=== PATIENT | male | born 1995 | race Caucasian/White ===

== ENCOUNTER 2020-05-03 23:12 | Emergency (ER) | payer BC, OTHER ==
[2020-05-03 23:19] VITALS: BP 148/56
[2020-05-04] MEDS ORDERED: LIDOCAINE 1% INJ (10 MG/ML) 10 ML MDV INJ ONE (00:38)
[2020-05-04] MEDS ORDERED: CEFTRIAXONE INJ 250 MG VIAL IM ONE (00:38)
[2020-05-04] MEDS ORDERED: AZITHROMYCIN 250 MG TABLET PO ONE (00:38)
--- NOTE | 2020-05-04 00:41 | ER Document Report ---
ED GI/ - General Chief Complaint: STD Exposure Stated Complaint: STD SCREEN BURNING WHEN URINATE Time Seen by Provider: 05/04/20 00:34 Notes: CHIEF COMPLAINT: Burning with urination testicular pain HPI: 25-year-old male presenting to the emergency department complaining of burning with urination and a clear discharge from the urethral tip. Patient also complains of mild intermittent sharp stabbing discomfort to the left testicle. Denies nausea vomiting. States he has been sexually active with someone who had told him she had been treated previously for chlamydia. States he is now not sure that she actually was treated. Does report some discomfort with urination ROS: See HPI - all other systems were reviewed and are otherwise negative Constitutional: no fever GI: no vomiting, no diarrhea, no abdominal pain : + dysuria Integumentary: no rash Allergy: no hives MEDICATIONS: I agree with the patient medications as charted by the RN. ALLERGIES: I agree with the allergies as charted by the RN. PAST MEDICAL HISTORY/PAST SURGICAL HISTORY: Reviewed and agree as charted by RN. SOCIAL HISTORY: Reviewed and agree as charted by RN. FAMILY HISTORY: No significant familial comorbid conditions directly related to patient complaint EXAM: Reviewed vital signs as charted by RN. CONSTITUTIONAL: Alert and oriented and responds appropriately to questions. Well-appearing; well-nourished HEAD: Normocephalic; atraumatic EYES: PERRL; Conjunctivae clear, sclerae non-icteric ENT: normal nose; no rhinorrhea; moist mucous membranes; pharynx without lesions noted, no uvula edema or deviation, no tonsillar hypertrophy, phonation normal NECK: Supple without meningismus; non-tender; no cervical lymphadenopathy, no masses CARD: symmetric distal pulses RESP: Normal chest excursion without splinting or tachypnea ABD/GI: Normal bowel sounds; non-distended; soft, non-tender, no rebound, no guarding; no palpable organomegaly or masses. : Circumcised male. Bilateral testicles are descended and nontender. No palpable masses. No visible or palpable inguinal or scrotal hernias. No visible urethral discharge. No visible lesions BACK: The back appears normal and is non-tender to palpation, there is no CVA tenderness EXT: Normal ROM in all joints; non-tender to palpation; no cyanosis, no effusions, no edema SKIN: Normal color for age and race; warm; dry; good turgor; no acute lesions noted NEURO: Moves all extremities equally; Motor and sensory function intact PSYCH: The patient's mood and manner are appropriate. Grooming and personal hygiene are appropriate. MDM: 25-year-old male with concern for STD possibly chlamydia. Will send testing, discussed need for abstinence, need for notification of sexual partners if he test positive. Will empirically treat with Zithromax for 7 TRAVEL OUTSIDE OF THE [place] IN LAST 30 DAYS: No - Related Data Allergies/Adverse Reactions: No Known Allergies Allergy (Verified 08/01/15 20:52) Home Medications: supplements Past Medical History - Social History Smoking Status: Never Smoker Family History: None Pulmonary Medical History: Reports: Hx Asthma - Immunizations Immunizations up to date: Yes Hx Diphtheria, Pertussis, Tetanus Vaccination: Yes Physical Exam - Vital signs Vitals: Temp Pulse Resp BP Pulse Ox 98.4 F 49 L 16 148/56 H 100 05/03/20 23:19 05/03/20 23:19 05/03/20 23:19 05/03/20 23:19 05/03/20 23:19 Course - Re-evaluation Re-evalutation: 05/04/20 00:40 I have low suspicion for torsion in this patient at this time - Vital Signs Vital signs: Temp Pulse Resp BP Pulse Ox 98.4 F 49 L 16 148/56 H 100 05/03/20 23:19 05/03/20 23:19 05/03/20 23:19 05/03/20 23:19 05/03/20 23:19 Discharge - Discharge Clinical Impression: Concern about STD in male without diagnosis Condition: Stable Disposition: HOME, SELF-CARE Additional Instructions: 1. you were treated tonight for presumptive STD. No sexual intercourse for one week. 2. your cultures for Gonorrhea and Chlamydia are pending and will take 4-5 days to come back. if they are positive, you will be notified by the hospital by certified letter. 3. follow up with [facility] for further evaluation and treatment 4. if your cultures are positive, notify any sexual partners of need to get treated
[2020-05-04 00:57] LABS: APPEARANCE,URINE CLEAR; BILIRUBIN,URINE NEGATIVE (NEGATIVE); COLOR,URINE STRAW; GLUCOSE, URINE NEGATIVE (NEGATIVE); KETONES,URINE NEGATIVE (NEGATIVE); LEUKOCYTE ESTERASE,URINE NEGATIVE (NEGATIVE); NITRITE,URINE NEGATIVE (NEGATIVE); PROTEIN,URINE NEGATIVE (NEGATIVE); URINE SPECIFIC GRAVITY 1.017; UROBILINOGEN,URINE NEGATIVE mg/dL (<2.0)
[2020-05-04 02:23] LABS: CHLAM PCR NOT DETECTED (NOT DETECT)
== END 2020-05-04 01:20 | disposition home or self-care (01) ==
LOC: ER 23:12
DX: Z20.2 Contact with and (suspected) exposure to infections with a predominantly sexual mode of transmission (principal); R30.0 Dysuria; R36.9 Urethral discharge, unspecified; J45.909 Unspecified asthma, uncomplicated; Z79.899 Other long term (current) drug therapy
CPT/HCPCS: 99284; 96372; 87086; 81001; 87491; 87591; J0696

== ENCOUNTER 2020-05-11 16:15 | Emergency (ER) | payer OTHER ==
--- NOTE | 2020-05-11 16:40 | ER Document Report ---
ED Medical Screen (RME) - General Chief Complaint: Headache Stated Complaint: HEADACHE Time Seen by Provider: 05/11/20 16:38 Information source: Patient Notes: Patient presents complaining of sore throat headache and fatigue for the past 2 days. Patient states 2 days ago he had a temperature of 100.7. Patient reports chronic cough. Patient is concerned about possible Covid I have greeted and performed a rapid initial assessment of this patient. A comprehensive ED assessment and evaluation of the patient, analysis of test results and completion of the medical decision making process will be conducted by additional ED providers. TRAVEL OUTSIDE OF THE [place] IN LAST 30 DAYS: No - Related Data Allergies/Adverse Reactions: No Known Allergies Allergy (Verified 08/01/15 20:52) Past Medical History Pulmonary Medical History: Reports: Hx Asthma - Immunizations Immunizations up to date: Yes Hx Diphtheria, Pertussis, Tetanus Vaccination: Yes Physical Exam - Vital signs Vitals: Temp Pulse Resp BP Pulse Ox 97.8 F 63 20 138/58 H 99 05/11/20 16:25 05/11/20 16:25 05/11/20 16:25 05/11/20 16:25 05/11/20 16:25 - HEENT Pharynx: Erythema. No: Exudate, Tonsillar hypertrophy, Potential airway comprom. Course - Vital Signs Vital signs: Temp Pulse Resp BP Pulse Ox 97.8 F 63 20 138/58 H 99 05/11/20 16:25 05/11/20 16:25 05/11/20 16:25 05/11/20 16:25 05/11/20 16:25
--- NOTE | 2020-05-11 16:59 | RADIOLOGY REPORT (SQ) ---
EXAM DESCRIPTION: CHEST SINGLE VIEW IMAGES COMPLETED DATE/TIME: 05/11/2020 4:51 pm REASON FOR STUDY: cough COMPARISON: None. EXAM PARAMETERS: NUMBER OF VIEWS: One view. TECHNIQUE: An AP view of the chest was obtained. RADIATION DOSE: NA LIMITATIONS: None. FINDINGS: LUNGS AND PLEURA: No consolidation, pleural effusion or pneumothorax. MEDIASTINUM AND HILAR STRUCTURES: No mediastinal or hilar contour abnormality. HEART AND VASCULAR STRUCTURES: The cardiac silhouette and pulmonary vasculature are within normal agustin its. BONES: No acute findings. HARDWARE: None in the chest. OTHER: No other finding. IMPRESSION: No acute cardiopulmonary process. TECHNICAL DOCUMENTATION: JOB ID: [id number] 2010 [employer]- All Rights Reserved Reading location - IP/workstation name: [email or web address]
[2020-05-11 18:50] LABS: A TYPE INFLUENZA AG NEGATIVE (NEGATIVE); B INFLUENZA AG NEGATIVE (NEGATIVE)
--- NOTE | 2020-05-11 19:23 | ER Document Report ---
Entered by RANDY KLINE SCRIBE 05/11/20 3750 Acting as scribe for:CRYS MARTINEZ DO ED General - General Chief Complaint: Headache Stated Complaint: HEADACHE Time Seen by Provider: 05/11/20 16:38 Information source: Patient Notes: This 25 year old male patient with history of asthma, presents to the emergency department today with complaints of feeling sick the past x3-4 days. Patient sta cindy the other day he visited [facility] and was given a steroid pack. Patient states he is worried about possible covid exposure. TRAVEL OUTSIDE OF THE [place] IN LAST 30 DAYS: No - Related Data Allergies/Adverse Reactions: No Known Allergies Allergy (Verified 08/01/15 20:52) Past Medical History - General Information source: Patient - Social History Smoking Status: Never Smoker Cigarette use (# per day): No Frequency of alcohol use: None Drug Abuse: None Family History: None Patient has homicidal ideation: No Pulmonary Medical History: Reports: Hx Asthma - Immunizations Immunizations up to date: Yes Hx Diphtheria, Pertussis, Tetanus Vaccination: Yes Review of Systems - Review of Systems Constitutional: See HPI, Recent illness EENT: No symptoms reported Cardiovascular: No symptoms reported Respiratory: No symptoms reported Gastrointestinal: No symptoms reported Genitourinary: No symptoms reported Male Genitourinary: No symptoms reported Musculoskeletal: No symptoms reported Skin: No symptoms reported Hematologic/Lymphatic: No symptoms reported Neurological/Psychological: No symptoms reported -: Yes All other systems reviewed and negative Physical Exam - Vital signs Vitals: Temp Pulse Resp BP Pulse Ox 97.8 F 63 20 138/58 H 99 05/11/20 16:25 05/11/20 16:25 05/11/20 16:25 05/11/20 16:25 05/11/20 16:25 - General General appearance: Appears well, Alert - HEENT Head: Normocephalic, Atraumatic Eyes: Normal Pupils: PERRL - Respiratory Respiratory status: No respiratory distress Chest status: Nontender Breath sounds: Normal Chest palpation: Normal - Cardiovascular Rhythm: Regular Heart sounds: Normal auscultation Murmur: No - Abdominal Inspection: Normal Distension: No distension Bowel sounds: Normal Tenderness: Nontender - Extremities General upper extremity: Normal inspection, Normal ROM General lower extremity: Normal inspection, Normal ROM. No: Edema - Neurological Neuro grossly intact: Yes Cognition: Normal Orientation: AAOx4 Montegut Coma Scale Eye Opening: Spontaneous Montegut Coma Scale Verbal: Oriented Scarlett Coma Scale Motor: Obeys Commands Montegut Coma Scale Total: 15 Speech: Normal Motor strength normal: LUE, RUE, LLE, RLE Sensory: Normal - Psychological Associated symptoms: Normal affect, Normal mood - Skin Skin Temperature: Warm Skin Moisture: Dry Skin Color: Normal Course - Vital Signs Vital signs: Temp Pulse Resp BP Pulse Ox 97.8 F 63 20 138/58 H 99 05/11/20 18:00 05/11/20 16:25 05/11/20 16:25 05/11/20 16:25 05/11/20 16:25 Discharge - Discharge Clinical Impression: Pharyngitis Qualifiers: Pharyngitis/tonsillitis etiology: unspecified etiology Qualified Code(s): J02.9 - Acute pharyngitis, unspecified Condition: Stable Disposition: HOME, SELF-CARE Instructions: COVID-19 Guidance for Persons Under Investigation, Sore Throat ([facility]) Additional Instructions: Tylenol for sore throat. Finish the antibiotic. Rest. Self isolate while you feel poorly. Take 50 mg Zinc daily and 1 gram vitamin C. Please return here for chest pain, shortness of breath or other problems or concerns. I personally performed the services described in the documentation, reviewed and edited the documentation which was dictated to the scribe in my presence, and it accurately records my words and actions.
[2020-05-11 20:41] VITALS: BP 137/62
== END 2020-05-11 20:41 | disposition home or self-care (01) ==
LOC: ER 16:15
DX: J02.9 Acute pharyngitis, unspecified (principal); R51.9 Headache, unspecified; J45.909 Unspecified asthma, uncomplicated; R05 Cough; R53.83 Other fatigue; Z20.828 Contact with and (suspected) exposure to other viral communicable diseases
CPT/HCPCS: 99284; 36415; 87070; 87880; 87635; 86308; 87804; 71045; C9803

== ENCOUNTER 2020-05-26 17:23 | Emergency (ER) | payer OTHER ==
--- NOTE | 2020-05-26 17:32 | ER Document Report ---
ED Medical Screen (RME) - General Chief Complaint: Psych Problem Stated Complaint: PSYCH Time Seen by Provider: 05/26/20 17:31 Mode of Arrival: Ambulatory Information source: Patient Notes: 25-year-old male presented to ED floors psych conditions. He states he just got out of the and has not been able to show appropriate feelings according to him and his girlfriend. He states he is having anxiety and having negative thoughts constantly. He states he has thought of killing himself more now than ever. He states he has not had a plan. He states he has never made a suicide attempt but he has thought about it more lately since breaking up with his girlfriend. I have greeted and performed a rapid initial assessment of this patient. A comprehensive ED assessment and evaluation of the patient, analysis of test results and completion of medical decision making process will be conducted by an additional ED providers. TRAVEL OUTSIDE OF THE [place] IN LAST 30 DAYS: No - Related Data Allergies/Adverse Reactions: No Known Allergies Allergy (Verified 08/01/15 20:52) Past Medical History Pulmonary Medical History: Reports: Hx Asthma - Immunizations Immunizations up to date: Yes Hx Diphtheria, Pertussis, Tetanus Vaccination: Yes Physical Exam - Vital signs Vitals: Temp Pulse Resp BP Pulse Ox 98.2 F 88 20 144/69 H 100 05/26/20 17:31 05/26/20 17:31 05/26/20 17:31 05/26/20 17:31 05/26/20 17:31 Course - Vital Signs Vital signs: Temp Pulse Resp BP Pulse Ox 98.2 F 88 20 144/69 H 100 05/26/20 17:31 05/26/20 17:31 05/26/20 17:31 05/26/20 17:31 05/26/20 17:31
[2020-05-26 18:22] LABS: ABSOLUTE LYMPHOCYTES (AUTO) 1.4 10^3/uL (0.5-4.7); ABSOLUTE MONOCYTES (AUTO) 0.6 10^3/uL (0.1-1.4); ABSOLUTE NEUT (AUTO) 6.7 10^3/uL (1.7-8.2); BASOPHILS % (AUTO) 0.4 % (0-2); EOSINOPHILS % (AUTO) 0.3 % (0-6); HEMOGLOBIN 16.7 g/dL (13.5-17.0); LYMPHOCYTES % (AUTO) 16.4 % (13-45); MEAN CORPUSCULAR HEMOGLOBIN 31.6 pg (27.0-33.4); MEAN CORPUSCULAR HGB CONC 34.7 g/dL (32.0-36.0); MEAN CORPUSCULAR VOLUME 91 fl (80-97); MONOCYTES % (AUTO) 7.1 % (3-13); PLATELET COUNT 251 10^3/uL (150-450); RED BLOOD COUNT 5.27 10^6/uL (4.35-5.55); RED CELL DISTRIBUTION WIDTH 12.7 % (11.5-14.0); SEGMENTED NEUTROPHILS % (AUTO) 75.8 % (42-78); TOTAL CELLS COUNTED % (AUTO) 100 %; WHITE BLOOD COUNT 8.8 10^3/uL (4.0-10.5)
[2020-05-26 18:23] LABS: APPEARANCE,URINE CLEAR; BILIRUBIN,URINE NEGATIVE (NEGATIVE); COLOR,URINE STRAW; GLUCOSE, URINE NEGATIVE (NEGATIVE); KETONES,URINE NEGATIVE (NEGATIVE); LEUKOCYTE ESTERASE,URINE NEGATIVE (NEGATIVE); NITRITE,URINE NEGATIVE (NEGATIVE); PROTEIN,URINE NEGATIVE (NEGATIVE); UROBILINOGEN,URINE NEGATIVE mg/dL (<2.0)
[2020-05-26 18:38] LABS: URINE AMPHETAMINES SCREEN NEGATIVE; URINE BARBITURATES SCREEN NEGATIVE; URINE BENZODIAZEPINES SCREEN NEGATIVE; URINE COCAINE SCREEN NEGATIVE; URINE MARIJUANA (THC) SCREEN NEGATIVE; URINE METHADONE SCREEN NEGATIVE; URINE PHENCYCLIDINE SCREEN NEGATIVE
[2020-05-26 18:41] LABS: ALKALINE PHOSPHATASE 44 U/L (38-126); ANION GAP 12 (5-19); ASPARTATE AMINO TRANSFERASE 32 U/L (17-59); BILIRUBIN,DIRECT 0.1 mg/dL (0.0-0.4); BLOOD UREA NITROGEN 26 mg/dL (7-20); CALCIUM 10.1 mg/dL (8.4-10.2); CARBON DIOXIDE 27 mmol/L (22-30); CHLORIDE 101 mmol/L (98-107); GLUCOSE 97 mg/dL (75-110); TOTAL PROTEIN 7.9 g/dL (6.3-8.2)
[2020-05-26 18:43] LABS: ACETAMINOPHEN < 10 ug/mL (10-30); ALCOHOL < 10 mg/dL (NONE DETECTED); SALICYLATE < 1.0 mg/dL (2.0-20.0)
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
--- NOTE | 2020-05-26 19:41 | ER Document Report ---
ED Psych Disorder / Suicide <ELIA RODRIGUEZ - Last Filed: 05/26/20 19:42> - General Mode of Arrival: Ambulatory TRAVEL OUTSIDE OF THE [place] IN LAST 30 DAYS: No <SARAHY WORKMAN - Last Filed: 05/26/20 19:56> - General Chief Complaint: Psych Problem Stated Complaint: PSYCH Time Seen by Provider: 05/26/20 17:31 Primary Care Provider: [facility] [Outside] - Follow up as needed [facility] [Outside] - Follow up as needed - HPI Notes: Patient is a 25-year-old male with no medical history who presents with depression and suicidal ideation. Patient states his fiance broke up with him 3 days ago and he has been depressed since. He states today his depression worsened where he felt like "he just could not do it anymore". He denies any specific plan on harming himself. He denies homicidal ideation, auditory, and visual hallucinations. Patient states he does not have a good support system as his friends and family do not understand what he is going through. He denies any other complaints including chest pain, shortness of breath, abdominal pain, vomiting, and diarrhea. (SARAHY WORKMAN) - Related Data Allergies/Adverse Reactions: No Known Allergies Allergy (Verified 08/01/15 20:52) Past Medical History - General Information source: Patient - Social History Smoking Status: Unknown if Ever Smoked Frequency of alcohol use: None Drug Abuse: None Family History: None Patient has homicidal ideation: No Pulmonary Medical History: Reports: Hx Asthma - Immunizations Immunizations up to date: Yes Hx Diphtheria, Pertussis, Tetanus Vaccination: Yes <SARAHY WORKMAN - Last Filed: 05/26/20 19:56> Review of Systems - Review of Systems Constitutional: No symptoms reported EENT: No symptoms reported Cardiovascular: No symptoms reported Respiratory: No symptoms reported Gastrointestinal: No symptoms reported Genitourinary: No symptoms reported Male Genitourinary: No symptoms reported Musculoskeletal: No symptoms reported Skin: No symptoms reported Hematologic/Lymphatic: No symptoms reported Neurological/Psychological: See HPI <SARAHY WORKMAN - Last Filed: 05/26/20 19:56> Physical Exam <SARAHY WORKMAN - Last Filed: 05/26/20 19:56> - Vital signs Vitals: Temp Pulse Resp BP Pulse Ox 98.2 F 88 20 144/69 H 100 05/26/20 17:31 05/26/20 17:31 05/26/20 17:31 05/26/20 17:31 05/26/20 17:31 - Notes Notes: PHYSICAL EXAMINATION: VITALS: Vitals reviewed and within normal limits. GENERAL: Well-appearing, well-nourished and in no acute distress. HEAD: Atraumatic, normocephalic. EYES: Pupils equal, round, and reactive to light, extraocular movements intact, sclera anicteric, conjunctiva are normal. ENT: Nares patent. Moist mucous membranes. Oropharynx clear without exudates. NECK: Normal range of motion, supple without lymphadenopathy. LUNGS: Breath sounds clear to auscultation bilaterally and equal. No wheezes, rales, or rhonchi. HEART: Regular, rate, and rhythm without murmurs. ABDOMEN: Soft, nontender, normoactive bowel sounds. No guarding, no rebound. No masses appreciated. EXTREMITIES: Normal range of motion, no pitting or edema. No cyanosis. NEUROLOGICAL: No focal neurological deficits. Moves all extremities spontaneously and on command. PSYCH: Depressed mood, normal affect. SKIN: Warm, Dry, normal turgor, no rashes or lesions noted. (SRAAHY WORKMAN) Course - Laboratory Results Result Diagrams: 05/26/20 18:00 05/26/20 18:00 <ELIA RODRIGUEZ - Last Filed: 05/26/20 19:42> - Laboratory Results Result Diagrams: 05/26/20 18:00 05/26/20 18:00 Critical Laboratory Results Reviewed: No Critical Results - Radiology Results Critical Radiology Results Reviewed: No Critical Results <SARAHY WORKMAN - Last Filed: 05/26/20 19:56> - Re-evaluation Re-evalutation: Patient is a 25-year-old male with no medical history or past psychiatric history who presents with depression and suicidal ideation. Vital signs are within normal limits. On exam, patient has a depressed mood but normal affect. CBC, CMP, UA and UA are all unremarkable within normal limits. Alcohol, salicylate, and Tylenol levels are all negative. Urine drug screen is negative. Patient is medically cleared. Patient was evaluated by psych and was determined to not meet IVC criteria due to passive SI with no plan or intent. Patient was provided with resources and outpatient follow-up. Patient has been cleared from psychiatric services. Return precautions and follow-up instructions given. Patient is in agreement with the plans and referral set up by psych. Patient is safe for discharge as he has both been cleared medically and by psychiatric services. (SARAHY WORKMAN) - Vital Signs Vital signs: Temp Pulse Resp BP Pulse Ox 98.2 F 88 20 144/69 H 100 05/26/20 17:31 05/26/20 17:31 05/26/20 17:31 05/26/20 17:31 05/26/20 17:31 - Laboratory Results Laboratory Results Interpreted: 05/26/20 18:00 BUN 26 H Salicylates < 1.0 L Acetaminophen < 10 L Discharge <ELIA RODRIGUEZ - Last Filed: 05/26/20 19:42> <SARAHY WORKMAN - Last Filed: 05/26/20 19:56> - Discharge Clinical Impression: Suicidal ideation Condition: Stable Disposition: HOME, SELF-CARE Additional Instructions: You have been evaluated by both medical and behavioral health teams for anxiety and passive suicidal ideation. You have been deemed appropriate for discharge. While in the emergency department you received the following services/or had access to: Medical screening and assessment, nursing services, dietary services, pharmacological services, one-on-one counseling and/or psychotherapy, environmental services, and continuous observation by a patient manager security and safety. Suicidal Ideation (passive) Suicidal ideation is a common medical term for thoughts about suicide, which may be as detailed as a formulated plan, without the suicidal act itself. Although most people who undergo suicidal ideation do not commit suicide, some go on to make suicide attempts. The range of suicidal ideation varies greatl y from fleeting to detailed planning, role playing, and unsuccessful attempts. While thoughts about suicide are common, most people do not carry out serious actions to commit suicide. However, based upon your evalutation and discussion with you, we believe you are not currently at risk to act upon your thoughts of suicide. Therefore, you will be discharged home. Follow up care: You are currently not involved in outpatient therapy or medication management. You are recommended to follow up with outpatient therapy. While on terminal leave, it is uncertain if you [place] or can go out in town. You have been given a community outpatient referral list to include phone numbers for [facility] and [facility] mobile crisis. If you experience worsening or a significant change in your symptoms, notify the physician immediately, utilize mobile crisis, or return to the Emergency Department at any time for re- evaluation. Dr. Goldberg was consulted to care management of this patient; attending physicians in agreement with recommendations and disposition. Referrals: [facility] [Outside] - Follow up as needed [facility] [Outside] - Follow up as needed
--- NOTE | 2020-05-26 19:51 | PSYCHOLOGICAL NOTE ---
Psych Note - Psych Note Date seen by psych provider: 05/26/20 Time seen by psych provider: 18:44 Psych Note: Reason for Consult: suicidal ideation Consent permissions: fatherDevonte, [id number] Patient is a 25 year old male who was admitted to the ED voluntarily for concerns of passive suicidal ideation and anxiety. Patient is currently on terminal leave from the [employer] (active duty until June) and states he is being honorably discharged. He and his ex girlfriend recently broke up. He reports they were planning to get , but she is Bipolar and she got upset when he told her that her moods change quickly. He reports passive suicidal ideations. He states this morning he woke up after having a dream about ex girlfriend and he began to have a panic attack. At that time he was experiencing passive suicidal ideations. Patient denies current suicidal ideation, plan, and intent. He denies mental health history and denies suicide attempts in the past. When asked about not getting back together with patient he reported he did not know what would happen. Patient was alert and oriented to self, person, place, time and situation. Mood was anxious with congruent affect. He denies suicidal and homicidal ideations, plan, and intent. Patient did not appear to be responding to internal stimuli as evidenced by fair eye contact and answering questions appropriately when addressed. Thought processes are linear and organized. Conversational speech was within normal limits for rate, tone and prosody. Intellectual abilities are estimated to be average. Insight, judgment and impulse control were fair as evidenced by coming to the ED due to passive SI. Patient engages appropriately. He demonstrates future forward goal oriented thinking as he talks about the upcoming holidays. Clinical Presentation: passive suicidal ideations, denies plan and intent IVC Criteria per [place] GS 122C Dangerous to others Within the relevant past the individual No has inflicted or attempted to inflict or threatened to inflict serious bodily harm on another AND No that there is a reasonable probability that this conduct will be repeated. OR No has acted in such a way as to create a substantial risk of serious bodily harm to another AND No that there is a reasonable probability that this conduct will be repeated. OR No has engaged in extreme destruction of property AND NO that there is a reasonable probability that this conduct will be repeated. Previous episodes of dangerousness to others, when applicable, may be considered when determining reasonable probability of future dangerous conduct. Clear, cogent, and convincing evidence that an individual has committed a homicide in the relevant past is prima facie evidence of dangerousness to others. Dangerous to self Within the relevant past the individual has done any of the following: acted in such a way as to show ALL of the following: No The individual would be unable without care, supervision, and the continued assistance of others not otherwise available, to exercise self- control, judgment, and discretion in the conduct of the individual's daily responsibilities and social relations or to satisfy the individual's need for nourishment, personal or medical care, long term, or self-protection and safety. AND No There is a reasonable probability of the individual suffering serious physical debilitation within the near future unless adequate treatment is given. A showing of behavior that is grossly irrational, of actions that the individual is unable to control, of behavior that is grossly inappropriate to the situation, or of other evidence of severely impaired insight and judgment shall create a prima facie inference that the individual is unable to care for himself or herself. OR yes has attempted suicide or threatened suicide a passive thought crossed patients mind; denies plan and intent AND No that there is a reasonable probability of suicide unless adequate treatment is given Denies current SI, plan, and intent; no mental health history; father agrees to be part of plan of care OR No has mutilated himself or herself or attempted to mutilate himself or herself AND No that there is a reasonable probability of serious self-mutilation unless adequate treatment is given. NOTE: Previous episodes of dangerousness to self, when applicable, may be considered when determining reasonable probability of physical debilitation, suicide, or self-mutilation. Impression\plan: Patient is cleared from psychiatric services. He does not meet criteria for IVC. He came to the ED with anxiety and passive SI, however denies current and denies plan and intent. He reports a recent break up. This morning he woke up after dreaming about his ex girlfriend and started to have a panic attack. He reports planning to her and states they broke up two weeks ago. He denies mental health history. He denies suicide attempts. He reports family support system. He was given resources for mobile crisis, [facility] and [facility], and outpatient therapy referrals. He is recommended to begin outpatient therapy to learn to identify triggers and learn healthy coping skills. Dr. Goldberg was consulted to care management of this patient; attending physicians in agreement with recommendations and disposition.
[2020-05-26 20:26] VITALS: BP 139/79
--- NOTE | 2020-05-27 13:19 | EKG REPORT ---
SEVERITY:- NORMAL ECG - SINUS RHYTHM : Confirmed by: Nikunj Dasilva 27-May-2020 13:18:39
== END 2020-05-26 20:00 | disposition home or self-care (01) ==
LOC: ER 17:23
DX: R45.851 Suicidal ideations (principal); F32.9 Major depressive disorder, single episode, unspecified; F41.0 Panic disorder [episodic paroxysmal anxiety]; Z63.0 Problems in relationship with spouse or partner; J45.909 Unspecified asthma, uncomplicated
CPT/HCPCS: 36415; 80053; 80307; 81001; 85025; 93005; 93010; 99285